=== PATIENT | female | born 1960 | race Caucasian/White ===

== ENCOUNTER 2018-05-15 06:21 | Inpatient (IN) | payer OTHER ==
[2018-05-15] MEDS ORDERED: Gabapentin 300 MG Cap PO ONE (06:30)
[2018-05-15] MEDS ORDERED: Scopolamine 1.5 MG Transdermal Patch TOP SCH (06:30)
[2018-05-15] MEDS ORDERED: Acetaminophen 500 MG Tab PO ONE (06:30)
[2018-05-15] MEDS ORDERED: Celecoxib 200 MG Cap PO ONE (06:30)
[2018-05-15] MEDS ORDERED: Rocuronium 50 MG/5 ML Vial ONE ×2 (07:02→08:45)
[2018-05-15] MEDS ORDERED: fentaNYL 250 MCG/5 ML SDV ONE ×2 (07:02→08:49)
[2018-05-15] MEDS ORDERED: Succinylcholine 200 MG/10 ML MDV ONE (07:02)
[2018-05-15] MEDS ORDERED: Glycopyrrolate 0.2 MG/ML 5 ML MDV ONE (07:02)
[2018-05-15] MEDS ORDERED: Dexamethasone 4 MG/ML SDV ONE (07:02)
[2018-05-15] MEDS ORDERED: Propofol 200 MG/20 ML SDV ONE (07:02)
[2018-05-15] MEDS ORDERED: Neostigmine Methylsulfate 1 MG/ML 5 ML Syringe ONE (07:02)
[2018-05-15] MEDS ORDERED: Ondansetron 4 MG/2 ML SDV ONE (07:02)
[2018-05-15] MEDS ORDERED: Lactated Ringers 1,000 ML ONE (07:03)
[2018-05-15] MEDS: Dextrose 5%-Lactated Ringers 1,000 ML IV SCH (07:12)
[2018-05-15] MEDS ORDERED: Lidocaine 1% 2 ML ONE (07:58)
[2018-05-15] MEDS ORDERED: Ropivacaine 51 ML, Dexamethasone 8 MG, EPINEPHrine 0.4 MG, Sodium Chloride 0.9% 26.6 ML NERVRT SCH ×4 (08:15)
[2018-05-15] MEDS ORDERED: Ketamine 50 MG in Sodium Chloride 0.9% 49.5 ML IV SCH (08:15)
[2018-05-15] MEDS ORDERED: Lidocaine 2% 100 MG/5 ML Syringe IVPUSH SCH (08:15)
[2018-05-15] MEDS ORDERED: Ketamine 500 MG/5 ML MDV IV SCH (08:15)
[2018-05-15] MEDS ORDERED: Lidocaine 0.4%/D5W 2 GM/500 ML BAG IV SCH (08:15)
[2018-05-15] MEDS ORDERED: cefOXitin 2 GM Vial ONE (08:33)
[2018-05-15] MEDS: cefOXitin 2 GM in Sodium Chloride 0.9% 50 ML IV ONE ×2 (08:40→14:04)
[2018-05-15] MEDS ORDERED: Insulin Lispro 100 Unit/ML 3 ML KwikPen SUBCUT ONE (10:45)
[2018-05-15] MEDS ORDERED: Glucagon,Human Recombinant 1 MG Vial IM PRN (11:30)
[2018-05-15] MEDS ORDERED: Labetalol 20 MG/4 ML Syringe IVPUSH PRN (11:30)
[2018-05-15] MEDS ORDERED: 50% Dextrose in Water 50 ML Syringe IVPUSH PRN (11:30)
[2018-05-15] MEDS ORDERED: diphenhydrAMINE 50 MG/ML SDV IVPUSH PRN (11:30)
[2018-05-15] MEDS ORDERED: Metoclopramide 10 MG/2 ML SDV IVPUSH PRN (11:30)
[2018-05-15] MEDS ORDERED: Ondansetron 4 MG/2 ML SDV IVPUSH PRN (11:30)
[2018-05-15] MEDS ORDERED: hydrOXYzine HCl 100 MG/2 ML SDV IM PRN (11:30)
[2018-05-15] MEDS ORDERED: HYDROmorphone 0.5 MG/0.5 ML Syringe IVPUSH PRN (11:36)
[2018-05-15] MEDS: Lactated Ringers 1,000 ML IV SCH ×2 (12:00→23:59)
[2018-05-15] MEDS: Pantoprazole 40 MG Vial IVPUSH SCH (14:04)
[2018-05-15] MEDS: Acetaminophen Soln 650 MG/20.3 ML UD Cup PO SCH ×2 (14:05→20:34)
[2018-05-15] MEDS: Gabapentin 250 MG/5 ML Solution ML 470 ML Bottle PO SCH ×2 (15:04→20:35)
[2018-05-15] MEDS: MVI, Adult with Vitamin K 10 ML, Thiamine 100 MG, Chromium/Copper/Mang/Selen/Zn 1 ML in... IV SCH ×4 (15:04)
[2018-05-15] MEDS: Heparin Sodium 5,000 Units/ML Vial SUBCUT SCH (15:04)
[2018-05-15] MEDS: cefOXitin 2 GM in Sodium Chloride 0.9% 50 ML IV SCH ×2 (15:04→20:34)
[2018-05-15] MEDS: Insulin Lispro 100 Unit/ML 3 ML KwikPen SUBCUT PRN ×2 (16:35→21:24)
[2018-05-15] MEDS: metFORMIN 500 MG Tab PO SCH (16:38)
[2018-05-15] MEDS ORDERED: Insulin Glargine,Human Rec. Analog 100 Units/ML 3 ML Pen SUBCUT ONE (21:00)
[2018-05-16] MEDS: Dextrose 5%-Lactated Ringers 1,000 ML IV SCH (01:07)
[2018-05-16] MEDS: cefOXitin 2 GM in Sodium Chloride 0.9% 50 ML IV SCH ×2 (02:57→09:22)
[2018-05-16] MEDS: Acetaminophen Soln 650 MG/20.3 ML UD Cup PO SCH ×4 (02:57→19:29)
[2018-05-16] MEDS: Heparin Sodium 5,000 Units/ML Vial SUBCUT SCH ×2 (03:07→16:21)
[2018-05-16] MEDS ORDERED: Iohexol 647 MG/ML 50 ML SDV PO STA (04:00)
--- NOTE | 2018-05-16 05:02 | CRLCR ---
Indication: Status post Stanley-en-Y evaluation Technique: KUB 2 view Comparison: None Findings/Impression: : First image performed at 3:56 a.m. demonstrates oral contrast material in the distal esophagus, the proximal stomach pouch, and small bowel loops in the left abdomen. A ARLEN drain projects in the left upper quadrant. The 2nd image performed at 4:10 a.m. demonstrates a faint, ill-defined collection of contrast medial to the ARLEN drain. This contrast may be within the stomach pouch although extravasation cannot be entirely excluded. Consider CT abdomen pelvis for further evaluation. These findings were discussed with Dr. Garcia at 5:00 a.m. on May 16, 2018. Dictated by Farrah Pride MD @ May 16 2018 4:49AM (Electronically Signed)
[2018-05-16] MEDS: Insulin Lispro 100 Unit/ML 3 ML KwikPen SUBCUT PRN (05:49)
[2018-05-16] MEDS ORDERED: Insulin Glargine,Human Rec. Analog 100 Units/ML 3 ML Pen SUBCUT STA (06:57)
[2018-05-16] MEDS: Celecoxib 200 MG Cap PO SCH (07:28)
[2018-05-16] MEDS: metFORMIN 500 MG Tab PO SCH ×2 (07:28→16:21)
[2018-05-16] MEDS ORDERED: Ondansetron 4 MG Tab.DIS PO PRN (08:09)
--- NOTE | 2018-05-16 08:39 | PCM.SURGPN ---
- General Info Date of Service: 05/16/18 Date of Surgery/Procedure: 05/15/18 POD#: 1 Post-Op Diagnosis: Laparosopic gastric bypass Stanley-en-Y. Laparoscopic small bowel resection. Liver biopsy percutaneous. Excision of lesion of soft tissue mass/lipoma/cyst Functional Status: Reports: Pain Controlled (scheduled Tylenol 650 mg PO every 6 hours, scheduled gabapentin 300 mg PO TID, and as needed Dilaudid 0.5 mg IV push every 2 hours), Tolerating Diet (Continue Step II diet with no solids today.), Urinating - Review of Systems Systems Review Comment:: Sharon Nugent is a 58-year-old female who is post op day from a laparoscopic gastric bypass Stanley-en-Y, laparoscopic small bowel resection, liver biopsy percutaneous, and excision of lesion of soft tissue mass/lipoma/cyst. The patient's pain is well controlled with scheduled Tylenol 650 mg PO every 6 hours , scheduled gabapentin 300 mg PO TID, and as needed Dilaudid 0.5 mg IV push every 2 hours. Patient remains afebrile but has elevated blood pressure at 158/ 80. Blood sugars were elevated at 261 and 226 overnight. Patient does not have any questions or concerns at this time. - Patient Data Vitals - Most Recent: Last Vital Signs Temp 36.8 C 05/16/18 06:00 Pulse 86 05/16/18 06:00 Resp 16 05/16/18 06:00 BP 158/80 H 05/16/18 06:00 Pulse Ox 97 05/16/18 07:26 Weight - Most Recent: 102.603 kg I&O - Last 24 Hours: Intake & Output 05/15/18 05/16/18 05/16/18 22:59 06:59 14:59 Intake Total 1249 2619 Output Total 0 2030 Balance -811 589 Med Orders - Current: Current Medications Acetaminophen (Tylenol) 650 mg PO Q6H [facility] Last Admin: 05/16/18 07:28 Dose: 650 mg Celecoxib (Celebrex) 200 mg PO DAILY@0800 [facility] Last Admin: 05/16/18 07:28 Dose: 200 mg Cyanocobalamin (Vitamin B12) 1,000 mcg IM ONETIME ONE Stop: 05/17/18 09:01 Dextrose/Water (Dextrose 50% In Water) 50 ml IVPUSH ONETIME PRN PRN Reason: ACCUCHECK LESS THAN 70 Diphenhydramine HCl (Benadryl) 50 mg IVPUSH Q4H PRN PRN Reason: ITCHING Escitalopram Oxalate (Lexapro) 10 mg PO DAILY [facility] Gabapentin (Neurontin) 300 mg PO TID [facility] Last Admin: 05/15/18 20:35 Dose: 300 mg Glucagon (Glucagen) 1 mg IM ONETIME PRN PRN Reason: ACCUCHECK LESS THAN 70 Heparin Sodium (Porcine) (Heparin Sodium) 5,000 units SUBCUT Q12H [facility] Last Admin: 05/16/18 03:07 Dose: 5,000 units Hydromorphone HCl (Dilaudid) 0.5 mg IVPUSH Q2H PRN PRN Reason: MODERATE PAIN Hydroxyzine HCl (Vistaril) 100 mg IM Q4H PRN PRN Reason: pain Multivitamins/Minerals 10 ml/Thiamine HCl 100 mg/ Chromium/Copper/Manganese/ Seleni/Zn 1 ml/ Lactated Ringer's 1,012 mls @ 100 mls/hr IV DAILY@1600 [facility] Last Admin: 05/15/18 15:04 Dose: 100 mls/hr Cefoxitin Sodium 2 gm/ Sodium (Chloride) 50 mls @ 100 mls/hr IV Q6H [facility] Stop: 05/16/18 09:29 Last Admin: 05/16/18 02:57 Dose: 100 mls/hr Lactated Ringer's (Ringers, Lactated) 1,000 mls @ 80 mls/hr IV ASDIRECTED [facility] Insulin Glargine (Lantus Solostar) 25 units SUBCUT BID [facility] Insulin Human Lispro (Humalog) 0 unit SUBCUT Q6H PRN; Protocol PRN Reason: CORRECTIONAL DOSING Last Admin: 05/16/18 05:49 Dose: 5 units Labetalol HCl (Normodyne) 5 mg IVPUSH Q5M PRN PRN Reason: SBP over 160 OR DBP over 95 Meclizine HCl (Antivert) 12.5 - 25 mg PO DAILY [facility] Metformin HCl (Glucophage) 1,000 mg PO BIDMEALS [facility] Last Admin: 05/16/18 07:28 Dose: 1,000 mg Metoclopramide HCl (Reglan) 10 mg IVPUSH Q6H PRN PRN Reason: NAUSEA NOT CONTROL BY ZOFRAN Miscellaneous Information (Remove Patch) 1 ea TRDERM ONETIME ONE Stop: 05/17/18 10:01 Scopolamine Patch (Check) 1 each TOP DAILY [facility] Stop: 05/17/18 11:31 Ondansetron HCl (Zofran) 4 mg IVPUSH Q4H PRN PRN Reason: Nausea/Vomiting Ondansetron HCl (Zofran Odt) 4 mg PO Q4H PRN PRN Reason: Nausea/Vomiting Pantoprazole Sodium (Protonix Iv) 40 mg IVPUSH Q24H [facility] Last Admin: 05/15/18 14:04 Dose: 40 mg Scopolamine (Transderm-Scop) 1.5 mg TOP Q72H [facility] Stop: 05/17/18 06:31 Last Admin: 05/15/18 07:10 Dose: 1.5 mg Discontinued Medications Acetaminophen (Tylenol Extra Strength) 1,000 mg PO ONETIME ONE Stop: 05/15/18 06:31 Last Admin: 05/15/18 07:09 Dose: 1,000 mg Cefoxitin Sodium (Mefoxin) Confirm Administered Dose 2 gm .ROUTE .STK-MED ONE Stop: 05/15/18 08:34 Last Admin: 05/15/18 08:53 Dose: 2 gm Celecoxib (Celebrex) 200 mg PO ONETIME ONE Stop: 05/15/18 06:31 Last Admin: 05/15/18 07:10 Dose: 200 mg Ropivacaine 51 ml/Dexamethasone 8 mg/Epinephrine HCl 0.4 mg/ Sodium Chloride 26.6 ml 0 ml NERVRT ASDIRECTED [facility] Last Admin: 05/15/18 08:41 Dose: 80 syringe Dexamethasone (Dexamethasone) Confirm Administered Dose 4 mg .ROUTE .STK-MED ONE Stop: 05/15/18 07:03 Fentanyl (Sublimaze) Confirm Administered Dose 250 mcg .ROUTE .STK-MED ONE Stop: 05/15/18 07:03 Fentanyl (Sublimaze) Confirm Administered Dose 250 mcg .ROUTE .STK-MED ONE Stop: 05/15/18 08:50 Gabapentin (Neurontin) 300 mg PO ONETIME ONE Stop: 05/15/18 06:31 Last Admin: 05/15/18 07:09 Dose: 300 mg Glycopyrrolate (Robinul) Confirm Administered Dose 1 mg .ROUTE .STK-MED ONE Stop: 05/15/18 07:03 Dextrose/Lactated Ringer's (Dextrose 5%-Lactated Ringers) 1,000 mls @ 100 mls/ hr IV ASDIRECTED [facility] Last Admin: 05/16/18 01:07 Dose: 100 mls/hr Cefoxitin Sodium 2 gm/ Sodium (Chloride) 50 mls @ 100 mls/hr IV ONETIME ONE Stop: 05/15/18 07:29 Last Admin: 05/15/18 14:04 Dose: Not Given Lidocaine HCl/Dextrose (Lidocaine 2 Gm/D5w 500 Ml) 2 gm in 500 mls @ 15 mls/hr IV .Q24H [facility] Stop: 05/16/18 17:34 Last Admin: 05/15/18 14:02 Dose: 1 mg/min, 15 mls/hr Ketamine HCl 50 mg/ Sodium (Chloride) 50 mls @ 15 mls/hr IV ASDIRECTED [facility] Insulin Human Regular 100 unit (/ Sodium Chloride) 100 mls @ 0 mls/hr IV TITRATE [facility]; Protocol Lactated Ringer's (Ringers, Lactated) Confirm Administered Dose 1,000 mls @ as directed .ROUTE .[facility]-MED ONE Stop: 05/15/18 07:04 Lidocaine HCl (Xylocaine-Mpf 1%) Confirm Administered Dose 2 mls @ as directed .ROUTE .[facility]-MED ONE Stop: 05/15/18 07:59 Lactated Ringer's (Ringers, Lactated) 1,000 mls @ 100 mls/hr IV ASDIRECTED [facility] Last Admin: 05/15/18 23:59 Dose: 100 mls/hr Insulin Glargine (Lantus Solostar) 25 units SUBCUT ONETIME ONE Stop: 05/15/18 21:01 Last Admin: 05/15/18 21:22 Dose: 25 unit Insulin Glargine (Lantus Solostar) 25 units SUBCUT DAILY [facility] Stop: 05/16/18 06:58 Last Admin: 05/16/18 07:23 Dose: 25 units Insulin Human Lispro (Humalog) 7 unit SUBCUT ONETIME ONE Stop: 05/15/18 10:46 Last Admin: 05/15/18 10:36 Dose: 7 units Iohexol (Omnipaque-300) 50 ml PO ONETIME [facility] Stop: 05/16/18 04:01 Last Admin: 05/16/18 04:01 Dose: 50 ml Ketamine HCl (Ketalar) 25 mg IV ASDIRECTED [facility] Lidocaine HCl (Xylocaine 2%) 100 mg IVPUSH ASDIRECTED [facility] Neostigmine Methylsulfate (Neostigmine) Confirm Administered Dose 5 mg .ROUTE .STK-MED ONE Stop: 05/15/18 07:03 Ondansetron HCl (Zofran) Confirm Administered Dose 4 mg .ROUTE .STK-MED ONE Stop: 05/15/18 07:03 Propofol (Diprivan 20 Ml) Confirm Administered Dose 200 mg .ROUTE .STK-MED ONE Stop: 05/15/18 07:03 Rocuronium Divide (Zemuron) Confirm Administered Dose 50 mg .ROUTE .STK-MED ONE Stop: 05/15/18 07:03 Rocuronium Divide (Zemuron) Confirm Administered Dose 50 mg .ROUTE .STK-MED ONE Stop: 05/15/18 08:46 Succinylcholine Chloride (Quelicin) Confirm Administered Dose 200 mg .ROUTE .STK -MED ONE Stop: 05/15/18 07:03 - Exam General: Alert, Oriented Neck: Supple Lungs: Clear to Auscultation, Normal Respiratory Effort Cardiovascular: Regular Rate, Regular Rhythm Extremities: No Pedal Edema Neurological: No New Focal Deficit Psy/Mental Status: Normal Affect, Normal Mood Physical Findings Comment:: Oral intake 480 mL Urine output 4025 mL ARLEN drain 65 mL - Problem List Review Problem List Initiated/Reviewed/Updated: Yes - My Orders Last 24 Hours: Active Orders 24 hr Category Date Time Status Patient Status [ADT] Routine ADT 05/15/18 10:00 Active Ambulate [RC] ASDIRECTED Care 05/15/18 11:30 Active Cardiac Monitoring Discontinue [RC] Click to Edit Care 05/16/18 09:00 Active Cardiac Monitoring [RC] .As Directed Care 05/15/18 11:30 Active Communication Order [RC] ASDIRECTED Care 05/16/18 08:11 Active Communication Order [RC] ASDIRECTED Care 05/16/18 08:12 Active Communication Order [RC] ROUTINE Care 05/15/18 11:30 Active Dorsiflex/Plantar flex x 10 [RC] QSHIFT Care 05/15/18 11:30 Active Drain Management [RC] ASDIRECTED Care 05/15/18 11:30 Active Head of Bed Elevation [RC] CONTINUOUS Care 05/15/18 11:30 Active Insert Urinary Catheter [OM.PC] Per Unit Routine Care 05/15/18 11:30 Ordered Insert Urinary Catheter [OM.PC] Per Unit Routine Care 05/15/18 11:30 Ordered Intake and Output [RC] ASDIRECTED Care 05/15/18 11:30 Active May Shower [RC] ASDIRECTED Care 05/16/18 08:09 Active Notify Provider Intake and Out [RC] ASDIRECTED Care 05/15/18 11:30 Active Notify Provider [RC] PRN Care 05/15/18 11:30 Active Oxygen Therapy [RC] ASDIRECTED Care 05/15/18 11:30 Active Pneumonia Education [RC] UPON Care 05/15/18 11:30 Active Pulse Oximetry [RC] ASDIRECTED Care 05/15/18 11:30 Active RT BiPAP/CPAP [RC] ASDIRECTED Care 05/15/18 11:30 Active RT Incentive Spirometry [RC] Q1HWA Care 05/15/18 11:30 Active Turn, Cough, Deep Breathe [RC] Q1HWA Care 05/15/18 11:30 Active Up to Chair [RC] TIDMEALS Care 05/15/18 11:30 Active Vital Signs [RC] Q1H Care 05/15/18 11:30 Active Consult to Bariatric Services [CONS] Routine Cons 05/15/18 11:30 Active Consult to Atomic Physics Professor [CONS] Routine Cons 05/15/18 11:30 Active Respiratory Care Assess and Treatment [CONS] Routine Cons 05/15/18 11:30 Active Bariatric Diet [DIET] Diet 05/16/18 Breakfast Active GLUCOSE POC LAB TO COLLECT [POC] Q6H Lab 05/16/18 10:00 Ordered GLUCOSE POC LAB TO COLLECT [POC] Q6H Lab 05/16/18 16:00 Ordered GLUCOSE POC LAB TO COLLECT [POC] Q6H Lab 05/16/18 22:00 Ordered GLUCOSE POC LAB TO COLLECT [POC] Q6H Lab 05/17/18 04:00 Ordered GLUCOSE POC LAB TO COLLECT [POC] Q6H Lab 05/17/18 10:00 Ordered GLUCOSE POC LAB TO COLLECT [POC] Q6H Lab 05/17/18 16:00 Ordered GLUCOSE POC LAB TO COLLECT [POC] Q6H Lab 05/17/18 22:00 Ordered GLUCOSE POC LAB TO COLLECT [POC] Q6H Lab 05/18/18 04:00 Ordered GLUCOSE POC LAB TO COLLECT [POC] Q6H Lab 05/18/18 10:00 Ordered Acetaminophen [Tylenol] Med 05/15/18 14:00 Active 650 mg PO Q6H Celecoxib [CeleBREX] Med 05/16/18 08:00 Active 200 mg PO DAILY@0800 Cyanocobalamin (Vitamin B12) [Vitamin B12] Med 05/17/18 09:00 Once 1,000 mcg IM ONETIME ONE Dextrose 50% in Water Med 05/15/18 11:30 Active 50 ml IVPUSH ONETIME PRN Escitalopram [Lexapro] Med 05/16/18 09:00 Active 10 mg PO DAILY Gabapentin [Neurontin] Med 05/15/18 14:00 Active 300 mg PO TID Glucagon,Human Recombinant [GlucaGen] Med 05/15/18 11:30 Active 1 mg IM ONETIME PRN HYDROmorphone [Dilaudid] Med 05/15/18 11:36 Active 0.5 mg IVPUSH Q2H PRN Heparin Sodium Med 05/15/18 16:00 Active 5,000 units SUBCUT Q12H Insulin Glarg,Human.Rec.Analog [LantUS Solostar] Med 05/16/18 21:00 Active 25 units SUBCUT BID Insulin Lispro [HumaLOG] Med 05/15/18 11:30 Active 0 unit SUBCUT Q6H PRN Labetalol [Normodyne] Med 05/15/18 11:30 Active 5 mg IVPUSH Q5M PRN Lactated Ringers [Ringers, Lactated] 1,000 ml Med 05/16/18 08:07 Active IV ASDIRECTED MVI, Adult with Vitamin K [Infuvite Adult] 10 ml Med 05/15/18 16:00 Active Thiamine [Vitamin B-1] 100 mg Chromium/Copper/Rohit/Selen/Zn [Multitrace-5 Concentrate ] 1 ml Lactated Ringers [Ringers, Lactated] 1,000 ml IV DAILY@1600 Meclizine [Antivert] Med 05/16/18 09:00 Active 12.5 - 25 mg PO DAILY Metoclopramide [Reglan] Med 05/15/18 11:30 Active 10 mg IVPUSH Q6H PRN Non-Formulary Medication [NF Drug] Med 05/15/18 11:30 Active 1 each TOP DAILY Ondansetron [Zofran ODT] Med 05/16/18 08:09 Active 4 mg PO Q4H PRN Ondansetron [Zofran] Med 05/15/18 11:30 Active 4 mg IVPUSH Q4H PRN Pantoprazole [ProTONIX IV] Med 05/15/18 14:00 Active 40 mg IVPUSH Q24H Remove Patch Med 05/17/18 10:00 Once 1 ea TRDERM ONETIME ONE cefOXitin [Mefoxin] 2 gm Med 05/15/18 15:00 Active Sodium Chloride 0.9% [Normal Saline] 50 ml IV Q6H diphenhydrAMINE [Benadryl] Med 05/15/18 11:30 Active 50 mg IVPUSH Q4H PRN hydrOXYzine HCl [Vistaril] Med 05/15/18 11:30 Active 100 mg IM Q4H PRN metFORMIN [Glucophage] Med 05/15/18 17:00 Active 1,000 mg PO BIDMEALS Abdominal Binder [OM.PC] Routine Oth 05/15/18 11:30 Ordered Oral Care [OM.PC] BID Oth 05/15/18 11:30 Ordered Oral Care [OM.PC] BID Oth 05/16/18 11:30 Ordered PT Screening [OM.PC] Routine Oth 05/15/18 11:30 Active Sequential Compression Device [OM.PC] Routine Oth 05/15/18 11:30 Ordered Specialty Bed [OM.PC] Routine Oth 05/15/18 11:30 Ordered Resuscitation Status Routine Resus Stat 05/15/18 11:30 Ordered Medication Orders Acetaminophen (Tylenol) 650 mg PO Q6H [facility] Last Admin: 05/16/18 07:28 Dose: 650 mg Admin: 05/16/18 02:57 Dose: 650 mg Admin: 05/15/18 20:34 Dose: 650 mg Admin: 05/15/18 14:05 Dose: 650 mg Celecoxib (Celebrex) 200 mg PO DAILY@0800 [facility] Last Admin: 05/16/18 07:28 Dose: 200 mg Cyanocobalamin (Vitamin B12) 1,000 mcg IM ONETIME ONE Stop: 05/17/18 09:01 Dextrose/Water (Dextrose 50% In Water) 50 ml IVPUSH ONETIME PRN PRN Reason: ACCUCHECK LESS THAN 70 Diphenhydramine HCl (Benadryl) 50 mg IVPUSH Q4H PRN PRN Reason: ITCHING Escitalopram Oxalate (Lexapro) 10 mg PO DAILY [facility] Gabapentin (Neurontin) 300 mg PO TID [facility] Last Admin: 05/15/18 20:35 Dose: 300 mg Admin: 05/15/18 15:04 Dose: 300 mg Glucagon (Glucagen) 1 mg IM ONETIME PRN PRN Reason: ACCUCHECK LESS THAN 70 Heparin Sodium (Porcine) (Heparin Sodium) 5,000 units SUBCUT Q12H [facility] Last Admin: 05/16/18 03:07 Dose: 5,000 units Admin: 05/15/18 15:04 Dose: 5,000 units Hydromorphone HCl (Dilaudid) 0.5 mg IVPUSH Q2H PRN PRN Reason: MODERATE PAIN Hydroxyzine HCl (Vistaril) 100 mg IM Q4H PRN PRN Reason: pain Multivitamins/Minerals 10 ml/Thiamine HCl 100 mg/ Chromium/Copper/Manganese/ Seleni/Zn 1 ml/ Lactated Ringer's 1,012 mls @ 100 mls/hr IV DAILY@1600 [facility] Last Admin: 05/15/18 15:04 Dose: 100 mls/hr Cefoxitin Sodium 2 gm/ Sodium (Chloride) 50 mls @ 100 mls/hr IV Q6H [facility] Stop: 05/16/18 09:29 Last Admin: 05/16/18 02:57 Dose: 100 mls/hr Admin: 05/15/18 20:34 Dose: 100 mls/hr Admin: 05/15/18 15:04 Dose: 100 mls/hr Lactated Ringer's (Ringers, Lactated) 1,000 mls @ 80 mls/hr IV ASDIRECTED [facility] Insulin Glargine (Lantus Solostar) 25 units SUBCUT BID [facility] Insulin Human Lispro (Humalog) 0 unit SUBCUT Q6H PRN; Protocol PRN Reason: CORRECTIONAL DOSING Last Admin: 05/16/18 05:49 Dose: 5 units Admin: 05/15/18 21:24 Dose: 7 units Admin: 05/15/18 16:35 Dose: 7 units Labetalol HCl (Normodyne) 5 mg IVPUSH Q5M PRN PRN Reason: SBP over 160 OR DBP over 95 Meclizine HCl (Antivert) 12.5 - 25 mg PO DAILY [facility] Metformin HCl (Glucophage) 1,000 mg PO BIDMEALS [facility] Last Admin: 05/16/18 07:28 Dose: 1,000 mg Admin: 05/15/18 16:38 Dose: 1,000 mg Metoclopramide HCl (Reglan) 10 mg IVPUSH Q6H PRN PRN Reason: NAUSEA NOT CONTROL BY ZOFRAN Miscellaneous Information (Remove Patch) 1 ea TRDERM ONETIME ONE Stop: 05/17/18 10:01 Scopolamine Patch (Check) 1 each TOP DAILY [facility] Stop: 05/17/18 11:31 Ondansetron HCl (Zofran) 4 mg IVPUSH Q4H PRN PRN Reason: Nausea/Vomiting Ondansetron HCl (Zofran Odt) 4 mg PO Q4H PRN PRN Reason: Nausea/Vomiting Pantoprazole Sodium (Protonix Iv) 40 mg IVPUSH Q24H [facility] Last Admin: 05/15/18 14:04 Dose: 40 mg Scopolamine (Transderm-Scop) 1.5 mg TOP Q72H [facility] Stop: 05/17/18 06:31 Last Admin: 05/15/18 07:10 Dose: 1.5 mg - Assessment Assessment (Free Text/Narrative):: Pre-Op Diagnosis: BMI 37 Post-Op Diagnosis: BMI 37 Procedure: 1) Laparoscopic gastric bypass Stanley-en-Y 2) Laparoscopic small bowel resection 3) Liver biopsy percutaneous 4) Excision of lesion of soft tissue mass/lipoma/cyst Date of Surgery: 05/15/18 Surgeon: Ford Garcia MD - Plan Plan (Free Text/Narrative):: 1. Check ARLEN drain for fluid color and volume every hour. 2. 3 medicine cups of water every hour. 3. Start Lantus 25 units subcutaneous BID at 0700 and 1900. 4. Start Meclizine 12.5-25 mg PO daily. 5. Zofran 4 mg PO every 4 hours PRN for nausea and vomiting. 6. Discontinue Dextrose 5%-LR 1,000 mL IV as directed. 7. Start LR 1,000 mL IV as directed. 8. May shower.
[2018-05-16] MEDS ORDERED: HYDROCORTISONE EARRT SCH (09:00)
[2018-05-16] MEDS ORDERED: ACETIC ACID EARRT SCH (09:00)
[2018-05-16] MEDS ORDERED: [UNRECOGNIZED DRUG - OTHER] EARRT SCH (09:00)
[2018-05-16] MEDS ORDERED: Escitalopram 10 MG Tab PO SCH (09:00)
[2018-05-16] MEDS: SCOPOLAMINE PATCH CHECK TOP SCH (09:22)
[2018-05-16] MEDS: Gabapentin 250 MG/5 ML Solution ML 470 ML Bottle PO SCH ×3 (09:23→21:47)
[2018-05-16] MEDS: Meclizine 25 MG Tab PO SCH (09:26)
[2018-05-16] MEDS: Lactated Ringers 1,000 ML IV SCH (11:07)
[2018-05-16] MEDS: Pantoprazole 40 MG Vial IVPUSH SCH (13:17)
[2018-05-16] MEDS: MVI, Adult with Vitamin K 10 ML, Thiamine 100 MG, Chromium/Copper/Mang/Selen/Zn 1 ML in... IV SCH ×4 (16:21)
[2018-05-16] MEDS ORDERED: Insulin Glargine,Human Rec. Analog 100 Units/ML 3 ML Pen SUBCUT SCH (21:00)
[2018-05-17] MEDS: Acetaminophen Soln 650 MG/20.3 ML UD Cup PO SCH ×4 (01:13→20:37)
[2018-05-17] MEDS: Lactated Ringers 1,000 ML IV SCH (01:21)
[2018-05-17] MEDS: Heparin Sodium 5,000 Units/ML Vial SUBCUT SCH ×2 (03:27→15:10)
[2018-05-17] MEDS: Clindamycin Phosphate 900 MG in Sodium Chloride 0.9% 100 ML IV SCH ×3 (08:05→23:00)
[2018-05-17] MEDS: Celecoxib 200 MG Cap PO SCH (08:05)
[2018-05-17] MEDS: Meclizine 25 MG Tab PO SCH (08:06)
[2018-05-17] MEDS: Gabapentin 250 MG/5 ML Solution ML 470 ML Bottle PO SCH ×3 (08:14→20:39)
[2018-05-17] MEDS: SCOPOLAMINE PATCH CHECK TOP SCH (08:15)
[2018-05-17] MEDS ORDERED: Cyanocobalamin (Vitamin B12) 1,000 MCG/ML SDV IM ONE (09:00)
--- NOTE | 2018-05-17 09:15 | PCM.SURGPN ---
- General Info Date of Service: 05/17/18 Date of Surgery/Procedure: 05/15/18 POD#: 2 Post-Op Diagnosis: Laparosopic gastric bypass Stanley-en-Y. Laparoscopic small bowel resection. Liver biopsy percutaneous. Excision of lesion of soft tissue mass/lipoma/cyst Functional Status: Reports: Pain Controlled (with scheduled Tylenol 650 mg PO every 6 hours, scheduled gabapentin 300 mg PO TID, and as needed Dilaudid 0.5 mg IV push every 2 hours), Tolerating Diet (Continue Step II diet today.), Ambulating (with assistance and suplemental oxygen.), Urinating (300 mL), Incentive Spirometry (use is good (performing this 10x/ hour while awake).) - Review of Systems Systems Review Comment:: Sharon Nugent is a 58-year-old female who is post op day 2 from a laparoscopic gastric bypass Stanley-en-Y, laparoscopic small bowel resection, liver biopsy percutaneous, and excision of lesion of soft tissue mass/lipoma/ cyst. The patient's pain is well controlled with scheduled Tylenol 650 mg PO every 6 hours, scheduled gabapentin 300 mg PO TID, and as needed Dilaudid 0.5 mg IV push every 2 hours. Patient remains afebrile but has elevated blood pressure at 154/69. Blood sugars decreased to a normal range at 91 and 86 overnight. Patient has had 1 bowel movement. Patient does not have any questions or concerns at this time. - Patient Data Vitals - Most Recent: Last Vital Signs Temp 37.7 C 05/17/18 07:00 Pulse 82 05/17/18 07:00 Resp 16 05/17/18 07:00 BP 165/81 H 05/17/18 07:00 Pulse Ox 95 05/17/18 07:00 Weight - Most Recent: 102.603 kg I&O - Last 24 Hours: Intake & Output 05/16/18 05/17/18 05/17/18 22:59 06:59 14:59 Intake Total 1640 1060 Output Total 850 1630 300 Balance 790 -570 -300 Med Orders - Current: Current Medications Acetaminophen (Tylenol) 650 mg PO Q6H [facility] Last Admin: 05/17/18 08:05 Dose: 650 mg Celecoxib (Celebrex) 200 mg PO DAILY@0800 [facility] Last Admin: 05/17/18 08:05 Dose: 200 mg Dextrose/Water (Dextrose 50% In Water) 50 ml IVPUSH ONETIME PRN PRN Reason: ACCUCHECK LESS THAN 70 Diphenhydramine HCl (Benadryl) 50 mg IVPUSH Q4H PRN PRN Reason: ITCHING Escitalopram Oxalate (Lexapro) 10 mg PO BEDTIME MICHELA Gabapentin (Neurontin) 300 mg PO TID [facility] Last Admin: 05/17/18 08:14 Dose: 300 mg Glucagon (Glucagen) 1 mg IM ONETIME PRN PRN Reason: ACCUCHECK LESS THAN 70 Heparin Sodium (Porcine) (Heparin Sodium) 5,000 units SUBCUT Q12H [facility] Last Admin: 05/17/18 03:27 Dose: 5,000 units Hydromorphone HCl (Dilaudid) 0.5 mg IVPUSH Q2H PRN PRN Reason: MODERATE PAIN Hydroxyzine HCl (Vistaril) 100 mg IM Q4H PRN PRN Reason: pain Multivitamins/Minerals 10 ml/Thiamine HCl 100 mg/ Chromium/Copper/Manganese/ Seleni/Zn 1 ml/ Lactated Ringer's 1,012 mls @ 100 mls/hr IV DAILY@1600 [facility] Last Admin: 05/16/18 16:21 Dose: 100 mls/hr Lactated Ringer's (Ringers, Lactated) 1,000 mls @ 80 mls/hr IV ASDIRECTED [facility] Last Admin: 05/17/18 01:21 Dose: 80 mls/hr Clindamycin Phosphate 900 mg/ (Sodium Chloride) 106 mls @ 200 mls/hr IV Q8H [facility] Last Admin: 05/17/18 08:05 Dose: 200 mls/hr Insulin Human Lispro (Humalog) 0 unit SUBCUT Q6H PRN; Protocol PRN Reason: CORRECTIONAL DOSING Last Admin: 05/16/18 05:49 Dose: 5 units Labetalol HCl (Normodyne) 5 mg IVPUSH Q5M PRN PRN Reason: SBP over 160 OR DBP over 95 Meclizine HCl (Antivert) 12.5 - 25 mg PO DAILY [facility] Last Admin: 05/17/18 08:06 Dose: 25 mg Metoclopramide HCl (Reglan) 10 mg IVPUSH Q6H PRN PRN Reason: NAUSEA NOT CONTROL BY ZOFRAN Miscellaneous Information (Remove Patch) 1 ea TRDERM ONETIME ONE Stop: 05/17/18 10:01 Scopolamine Patch (Check) 1 each TOP DAILY [facility] Stop: 05/17/18 11:31 Last Admin: 05/17/18 08:15 Dose: Not Given Ondansetron HCl (Zofran) 4 mg IVPUSH Q4H PRN PRN Reason: Nausea/Vomiting Ondansetron HCl (Zofran Odt) 4 mg PO Q4H PRN PRN Reason: Nausea/Vomiting Pantoprazole Sodium (Protonix Iv) 40 mg IVPUSH Q24H [facility] Last Admin: 05/16/18 13:17 Dose: 40 mg Discontinued Medications Acetaminophen (Tylenol Extra Strength) 1,000 mg PO ONETIME ONE Stop: 05/15/18 06:31 Last Admin: 05/15/18 07:09 Dose: 1,000 mg Cefoxitin Sodium (Mefoxin) Confirm Administered Dose 2 gm .ROUTE .STK-MED ONE Stop: 05/15/18 08:34 Last Admin: 05/15/18 08:53 Dose: 2 gm Celecoxib (Celebrex) 200 mg PO ONETIME ONE Stop: 05/15/18 06:31 Last Admin: 05/15/18 07:10 Dose: 200 mg Ropivacaine 51 ml/Dexamethasone 8 mg/Epinephrine HCl 0.4 mg/ Sodium Chloride 26.6 ml 0 ml NERVRT ASDIRECTED [facility] Last Admin: 05/15/18 08:41 Dose: 80 syringe Cyanocobalamin (Vitamin B12) 1,000 mcg IM ONETIME ONE Stop: 05/17/18 09:01 Last Admin: 05/17/18 08:07 Dose: 1,000 mcg Dexamethasone (Dexamethasone) Confirm Administered Dose 4 mg .ROUTE .STK-MED ONE Stop: 05/15/18 07:03 Escitalopram Oxalate (Lexapro) 10 mg PO DAILY [facility] Last Admin: 05/16/18 09:26 Dose: 10 mg Fentanyl (Sublimaze) Confirm Administered Dose 250 mcg .ROUTE .STK-MED ONE Stop: 05/15/18 07:03 Fentanyl (Sublimaze) Confirm Administered Dose 250 mcg .ROUTE .STK-MED ONE Stop: 05/15/18 08:50 Gabapentin (Neurontin) 300 mg PO ONETIME ONE Stop: 05/15/18 06:31 Last Admin: 05/15/18 07:09 Dose: 300 mg Glycopyrrolate (Robinul) Confirm Administered Dose 1 mg .ROUTE .[facility] ONE Stop: 05/15/18 07:03 Dextrose/Lactated Ringer's (Dextrose 5%-Lactated Ringers) 1,000 mls @ 100 mls/ hr IV ASDIRECTED [facility] Last Admin: 05/16/18 01:07 Dose: 100 mls/hr Cefoxitin Sodium 2 gm/ Sodium (Chloride) 50 mls @ 100 mls/hr IV ONETIME ONE Stop: 05/15/18 07:29 Last Admin: 05/15/18 14:04 Dose: Not Given Lidocaine HCl/Dextrose (Lidocaine 2 Gm/D5w 500 Ml) 2 gm in 500 mls @ 15 mls/hr IV .Q24H [facility] Stop: 05/16/18 17:34 Last Admin: 05/15/18 14:02 Dose: 1 mg/min, 15 mls/hr Ketamine HCl 50 mg/ Sodium (Chloride) 50 mls @ 15 mls/hr IV ASDIRECTED [facility] Insulin Human Regular 100 unit (/ Sodium Chloride) 100 mls @ 0 mls/hr IV TITRATE MICHELA; Protocol Lactated Ringer's (Ringers, Lactated) Confirm Administered Dose 1,000 mls @ as directed .ROUTE .[facility] ONE Stop: 05/15/18 07:04 Lidocaine HCl (Xylocaine-Mpf 1%) Confirm Administered Dose 2 mls @ as directed .ROUTE .[facility] ONE Stop: 05/15/18 07:59 Cefoxitin Sodium 2 gm/ Sodium (Chloride) 50 mls @ 100 mls/hr IV Q6H [facility] Stop: 05/16/18 09:29 Last Admin: 05/16/18 09:22 Dose: 100 mls/hr Lactated Ringer's (Ringers, Lactated) 1,000 mls @ 100 mls/hr IV ASDIRECTED [facility] Last Admin: 05/15/18 23:59 Dose: 100 mls/hr Insulin Glargine (Lantus Solostar) 25 units SUBCUT ONETIME ONE Stop: 05/15/18 21:01 Last Admin: 05/15/18 21:22 Dose: 25 unit Insulin Glargine (Lantus Solostar) 25 units SUBCUT DAILY [facility] Stop: 05/16/18 06:58 Last Admin: 05/16/18 07:23 Dose: 25 units Insulin Glargine (Lantus Solostar) 25 units SUBCUT BID [facility] Last Admin: 05/16/18 21:17 Dose: Not Given Insulin Human Lispro (Humalog) 7 unit SUBCUT ONETIME ONE Stop: 05/15/18 10:46 Last Admin: 05/15/18 10:36 Dose: 7 units Iohexol (Omnipaque-300) 50 ml PO ONETIME [facility] Stop: 05/16/18 04:01 Last Admin: 05/16/18 04:01 Dose: 50 ml Ketamine HCl (Ketalar) 25 mg IV ASDIRECTED [facility] Lidocaine HCl (Xylocaine 2%) 100 mg IVPUSH ASDIRECTED [facility] Metformin HCl (Glucophage) 1,000 mg PO BIDMEALS [facility] Last Admin: 05/16/18 16:21 Dose: 1,000 mg Neostigmine Methylsulfate (Neostigmine) Confirm Administered Dose 5 mg .ROUTE .STK-MED ONE Stop: 05/15/18 07:03 Ondansetron HCl (Zofran) Confirm Administered Dose 4 mg .ROUTE .STK-MED ONE Stop: 05/15/18 07:03 Propofol (Diprivan 20 Ml) Confirm Administered Dose 200 mg .ROUTE .STK-MED ONE Stop: 05/15/18 07:03 Rocuronium [place] (Zemuron) Confirm Administered Dose 50 mg .ROUTE .STK-MED ONE Stop: 05/15/18 07:03 Rocuronium [place] (Zemuron) Confirm Administered Dose 50 mg .ROUTE .STK-MED ONE Stop: 05/15/18 08:46 Scopolamine (Transderm-Scop) 1.5 mg TOP Q72H [facility] Stop: 05/17/18 06:31 Last Admin: 05/15/18 07:10 Dose: 1.5 mg Succinylcholine Chloride (Quelicin) Confirm Administered Dose 200 mg .ROUTE .STK -MED ONE Stop: 05/15/18 07:03 - Exam General: Alert, Oriented Neck: Supple Lungs: Clear to Auscultation, Normal Respiratory Effort Cardiovascular: Regular Rate, Regular Rhythm Extremities: No Pedal Edema Neurological: No New Focal Deficit Psy/Mental Status: Normal Affect, Normal Mood Physical Findings Comment:: Oral intake: 1450 mL Urine output:300 mL ARLEN drain: clear, red fluid in drain with 80 mL output - Problem List Review Problem List Initiated/Reviewed/Updated: Yes - My Orders Last 24 Hours: Active Orders 24 hr Category Date Time Status Cardiac Monitoring Discontinue [RC] Click to Edit Care 05/16/18 09:00 Inactive GLUCOSE POC LAB TO COLLECT [POC] Q6H Lab 05/16/18 10:05 Received GLUCOSE POC LAB TO COLLECT [POC] Q6H Lab 05/17/18 10:00 Ordered GLUCOSE POC LAB TO COLLECT [POC] Q6H Lab 05/17/18 16:00 Ordered GLUCOSE POC LAB TO COLLECT [POC] Q6H Lab 05/17/18 22:00 Ordered GLUCOSE POC LAB TO COLLECT [POC] Q6H Lab 05/18/18 04:00 Ordered GLUCOSE POC LAB TO COLLECT [POC] Q6H Lab 05/18/18 10:00 Ordered Clindamycin Phosphate [Cleocin] 900 mg Med 05/17/18 08:30 Active Sodium Chloride 0.9% [Normal Saline] 100 ml IV Q8H Escitalopram [Lexapro] Med 05/17/18 21:00 Active 10 mg PO BEDTIME Meclizine [Antivert] Med 05/16/18 09:00 Active 12.5 - 25 mg PO DAILY Remove Patch Med 05/17/18 10:00 Once 1 ea TRDERM ONETIME ONE Convert IV to Saline Lock [OM.PC] Routine Oth 05/17/18 07:21 Ordered Oral Care [OM.PC] BID Oth 05/16/18 11:30 Ordered Medication Orders Acetaminophen (Tylenol) 650 mg PO Q6H [facility] Last Admin: 05/17/18 08:05 Dose: 650 mg Admin: 05/17/18 01:13 Dose: 650 mg Admin: 05/16/18 19:29 Dose: 650 mg Admin: 05/16/18 13:17 Dose: 650 mg Admin: 05/16/18 07:28 Dose: 650 mg Admin: 05/16/18 02:57 Dose: 650 mg Admin: 05/15/18 20:34 Dose: 650 mg Admin: 05/15/18 14:05 Dose: 650 mg Celecoxib (Celebrex) 200 mg PO DAILY@0800 [facility] Last Admin: 05/17/18 08:05 Dose: 200 mg Admin: 05/16/18 07:28 Dose: 200 mg Dextrose/Water (Dextrose 50% In Water) 50 ml IVPUSH ONETIME PRN PRN Reason: ACCUCHECK LESS THAN 70 Diphenhydramine HCl (Benadryl) 50 mg IVPUSH Q4H PRN PRN Reason: ITCHING Escitalopram Oxalate (Lexapro) 10 mg PO BEDTIME MICHELA Gabapentin (Neurontin) 300 mg PO TID [facility] Last Admin: 05/17/18 08:14 Dose: 300 mg Admin: 05/16/18 21:47 Dose: 300 mg Admin: 05/16/18 13:25 Dose: 300 mg Admin: 05/16/18 09:23 Dose: 300 mg Admin: 05/15/18 20:35 Dose: 300 mg Admin: 05/15/18 15:04 Dose: 300 mg Glucagon (Glucagen) 1 mg IM ONETIME PRN PRN Reason: ACCUCHECK LESS THAN 70 Heparin Sodium (Porcine) (Heparin Sodium) 5,000 units SUBCUT Q12H [facility] Last Admin: 05/17/18 03:27 Dose: 5,000 units Admin: 05/16/18 16:21 Dose: 5,000 units Admin: 05/16/18 03:07 Dose: 5,000 units Admin: 05/15/18 15:04 Dose: 5,000 units Hydromorphone HCl (Dilaudid) 0.5 mg IVPUSH Q2H PRN PRN Reason: MODERATE PAIN Hydroxyzine HCl (Vistaril) 100 mg IM Q4H PRN PRN Reason: pain Multivitamins/Minerals 10 ml/Thiamine HCl 100 mg/ Chromium/Copper/Manganese/ Seleni/Zn 1 ml/ Lactated Ringer's 1,012 mls @ 100 mls/hr IV DAILY@1600 [facility] Last Admin: 05/16/18 16:21 Dose: 100 mls/hr Admin: 05/15/18 15:04 Dose: 100 mls/hr Lactated Ringer's (Ringers, Lactated) 1,000 mls @ 80 mls/hr IV ASDIRECTED [facility] Last Admin: 05/17/18 01:21 Dose: 80 mls/hr Infusion: 05/16/18 23:37 Dose: 80 mls/hr Admin: 05/16/18 11:07 Dose: 80 mls/hr Clindamycin Phosphate 900 mg/ (Sodium Chloride) 106 mls @ 200 mls/hr IV Q8H [facility] Last Admin: 05/17/18 08:05 Dose: 200 mls/hr Insulin Human Lispro (Humalog) 0 unit SUBCUT Q6H PRN; Protocol PRN Reason: CORRECTIONAL DOSING Last Admin: 05/16/18 05:49 Dose: 5 units Admin: 05/15/18 21:24 Dose: 7 units Admin: 05/15/18 16:35 Dose: 7 units Labetalol HCl (Normodyne) 5 mg IVPUSH Q5M PRN PRN Reason: SBP over 160 OR DBP over 95 Meclizine HCl (Antivert) 12.5 - 25 mg PO DAILY [facility] Last Admin: 05/17/18 08:06 Dose: 25 mg Admin: 05/16/18 09:26 Dose: 25 mg Metoclopramide HCl (Reglan) 10 mg IVPUSH Q6H PRN PRN Reason: NAUSEA NOT CONTROL BY ZOFRAN Miscellaneous Information (Remove Patch) 1 ea TRDERM ONETIME ONE Stop: 05/17/18 10:01 Scopolamine Patch (Check) 1 each TOP DAILY [facility] Stop: 05/17/18 11:31 Last Admin: 05/17/18 08:15 Dose: Not Given Admin: 05/16/18 09:22 Dose: Ondansetron HCl (Zofran) 4 mg IVPUSH Q4H PRN PRN Reason: Nausea/Vomiting Ondansetron HCl (Zofran Odt) 4 mg PO Q4H PRN PRN Reason: Nausea/Vomiting Pantoprazole Sodium (Protonix Iv) 40 mg IVPUSH Q24H [facility] Last Admin: 05/16/18 13:17 Dose: 40 mg Admin: 05/15/18 14:04 Dose: 40 mg - Assessment Assessment (Free Text/Narrative):: Pre-Op Diagnosis: BMI 37 Post-Op Diagnosis: BMI 37 Procedure: 1) Laparoscopic gastric bypass Stanley-en-Y 2) Laparoscopic small bowel resection 3) Liver biopsy percutaneous 4) Excision of lesion of soft tissue mass/lipoma/cyst Date of Surgery: 05/15/18 Surgeon: Ford Garcia MD - Plan Plan (Free Text/Narrative):: 1. Convert IV to saline lock. 2. Discontinue Lantus. 3. Discontinue metformin. 4. Start Clindamycin 900 mg IV every 8 hours.
[2018-05-17] MEDS ORDERED: Sodium Chloride 0.9% 10 ML Syringe IV PRN (09:17)
[2018-05-17] MEDS ORDERED: Pantoprazole 40 MG Delayed-Release Granules 1 Packet PO SCH (14:00)
[2018-05-17] MEDS ORDERED: Escitalopram 10 MG Tab PO SCH (21:00)
[2018-05-18] MEDS: Acetaminophen Soln 650 MG/20.3 ML UD Cup PO SCH ×2 (01:50→08:10)
[2018-05-18] MEDS: Heparin Sodium 5,000 Units/ML Vial SUBCUT SCH (03:00)
--- NOTE | 2018-05-18 07:13 | PCM.DCSUM1 ---
Discharge Summary - Hospital Course Free Text/Narrative:: Admission Diagnosis: 1. Status post small bowel resection 2. Gastric bypass status for obesity 3. Coronary artery disease 4. GERD 5. Lumbar spondylolysis 6. Anxiety and depression 7. Chronic obstructive pulmonary disorder Discharge Diagnosis: Laparoscopic gastric bypass Stanley-en-Y, laparoscopic small bowel resection, liver biopsy percutaneous, and excision of lesion of soft tissue mass/lipoma/ cyst. Date of Surgery: 05/15/18. Surgeon: Ford Garcia MD. Brief History: History: Sharon Nugent is a 58-year-old female with a BMI of 37. After preoperative evaluation and discussion of possible risks and possible complications, she wished to proceed with surgical procedure. Hospital Course: Raffi had her surgery on 05/15/18. She had no evident operative complications. On postoperative day 1, she remained afebrile with stable vital signs but had elevated blood pressures. Blood sugars were elevated as well. Pain was well controlled with oral medications. On postoperative day 2, she remained afebrile with stable vital signs but had elevated blood pressures. Blood sugars normalized. Pain was well controlled with oral medications. Patient had a bowel movement. On postoperative day 3, she remained afebrile with stable vital signs including her blood pressure. Blood sugars were elevated but less than 200. Pain still well controlled with oral medications. Bowels are moving effectively. She will be discharged to home today without any complications. - Discharge Data Discharge Date: 05/18/18 Discharge Disposition: Home, Self-Care 01 Condition: Good - Patient Summary/Data Consults: Consultations 05/15/18 11:30 Consult to Bariatric Services [CONS] Routine Comment: Consult to Train Announcer [CONS] Routine Comment: Physician Instructions: Quantity: Respiratory Care Assess and Treatment [CONS] Routine Comment: Physician Instructions: Post-Op Pneumonia Prevention - Patient Instructions Diet, Other: Step II diet for 2 weeks. Drink 3 medicine sized cups of water every hour. Activity: No Lifting Over 10 Pounds (for 2 weeks.) Activity, Other: Walk inside home 6 times per day. Driving: Do Not Drive (for 1 week.) Showering/Bathing: May Shower Wound/Incision Care: Keep Operative Site/Wound Site Clean and Dry Wound/Incision, Other: Wear abdominal binder for 2 weeks and then as tolerated. Notify Provider of: Fever, Increased Pain, Nausea and/or Vomiting Other/Special Instructions: Use incentive spirometer 10x every hour while awake. Check blood sugars twice a day and then if needed. Record results and call clinic on Monday to talk to one of the RNs. - Discharge Plan Home Medications: Home Meds Aspirin [Adult Aspirin] 81 mg PO DAILY 05/14/18 [History] Escitalopram [Lexapro] 10 mg PO DAILY 05/14/18 [History] Hydrocortisone/Acetic Acid [Hydrocortison-Acetic Acid Soln] 3 - 5 drop EARRT BID 05/14/18 [History] Meclizine [Antivert] 12.5 - 25 mg PO DAILY 05/14/18 [History] Acetaminophen [Tylenol] 650 mg PO Q6H cup 05/18/18 [Rx] Celecoxib [CeleBREX] 200 mg PO DAILY@0800 cap 05/18/18 [Rx] Clindamycin HCl [Cleocin HCl] 300 mg PO TID #15 capsule 05/18/18 [Rx] Ondansetron [Zofran ODT] 4 mg PO Q4H PRN #30 tab.dis 05/18/18 [Rx] - Discharge Summary/Plan Comment DC Time >30 min.: Yes - Patient Data Vitals - Most Recent: Last Vital Signs Temp 36.8 C 05/18/18 02:48 Pulse 96 05/18/18 02:48 Resp 16 05/18/18 02:48 BP 120/71 05/18/18 02:48 Pulse Ox 93 L 05/18/18 02:48 Weight - Most Recent: 102.603 kg I&O - Last 24 hours: Intake & Output 05/17/18 05/18/18 05/18/18 22:59 06:59 14:59 Intake Total 680 336 Output Total 340 510 Balance 340 -174 Med Orders - Current: Current Medications Acetaminophen (Tylenol) 650 mg PO Q6H [facility] Last Admin: 05/18/18 01:50 Dose: 650 mg Celecoxib (Celebrex) 200 mg PO DAILY@0800 [facility] Last Admin: 05/17/18 08:05 Dose: 200 mg Dextrose/Water (Dextrose 50% In Water) 50 ml IVPUSH ONETIME PRN PRN Reason: ACCUCHECK LESS THAN 70 Diphenhydramine HCl (Benadryl) 50 mg IVPUSH Q4H PRN PRN Reason: ITCHING Escitalopram Oxalate (Lexapro) 10 mg PO BEDTIME [facility] Last Admin: 05/17/18 20:39 Dose: 10 mg Gabapentin (Neurontin) 300 mg PO TID [facility] Last Admin: 05/17/18 20:39 Dose: 300 mg Glucagon (Glucagen) 1 mg IM ONETIME PRN PRN Reason: ACCUCHECK LESS THAN 70 Heparin Sodium (Porcine) (Heparin Sodium) 5,000 units SUBCUT Q12H [facility] Last Admin: 05/18/18 03:00 Dose: 5,000 units Hydromorphone HCl (Dilaudid) 0.5 mg IVPUSH Q2H PRN PRN Reason: MODERATE PAIN Hydroxyzine HCl (Vistaril) 100 mg IM Q4H PRN PRN Reason: pain Clindamycin Phosphate 900 mg/ (Sodium Chloride) 106 mls @ 200 mls/hr IV Q8H [facility] Last Admin: 05/17/18 23:00 Dose: 200 mls/hr Insulin Human Lispro (Humalog) 0 unit SUBCUT Q6H PRN; Protocol PRN Reason: CORRECTIONAL DOSING Last Admin: 05/16/18 05:49 Dose: 5 units Labetalol HCl (Normodyne) 5 mg IVPUSH Q5M PRN PRN Reason: SBP over 160 OR DBP over 95 Meclizine HCl (Antivert) 12.5 - 25 mg PO DAILY [facility] Last Admin: 05/17/18 08:06 Dose: 25 mg Metoclopramide HCl (Reglan) 10 mg IVPUSH Q6H PRN PRN Reason: NAUSEA NOT CONTROL BY ZOFRAN Ondansetron HCl (Zofran) 4 mg IVPUSH Q4H PRN PRN Reason: Nausea/Vomiting Ondansetron HCl (Zofran Odt) 4 mg PO Q4H PRN PRN Reason: Nausea/Vomiting Pantoprazole Sodium (Protonix Granules) 40 mg PO Q24H [facility] Last Admin: 05/17/18 14:34 Dose: 40 mg Sodium Chloride (Saline Flush) 10 ml IV ASDIRECTED PRN PRN Reason: SALINE LOCK IV Discontinued Medications Acetaminophen (Tylenol Extra Strength) 1,000 mg PO ONETIME ONE Stop: 05/15/18 06:31 Last Admin: 05/15/18 07:09 Dose: 1,000 mg Cefoxitin Sodium (Mefoxin) Confirm Administered Dose 2 gm .ROUTE .STK-MED ONE Stop: 05/15/18 08:34 Last Admin: 05/15/18 08:53 Dose: 2 gm Celecoxib (Celebrex) 200 mg PO ONETIME ONE Stop: 05/15/18 06:31 Last Admin: 05/15/18 07:10 Dose: 200 mg Ropivacaine 51 ml/Dexamethasone 8 mg/Epinephrine HCl 0.4 mg/ Sodium Chloride 26.6 ml 0 ml NERVRT ASDIRECTED [facility] Last Admin: 05/15/18 08:41 Dose: 80 syringe Cyanocobalamin (Vitamin B12) 1,000 mcg IM ONETIME ONE Stop: 05/17/18 09:01 Last Admin: 05/17/18 08:07 Dose: 1,000 mcg Dexamethasone (Dexamethasone) Confirm Administered Dose 4 mg .ROUTE .STK-MED ONE Stop: 05/15/18 07:03 Escitalopram Oxalate (Lexapro) 10 mg PO DAILY [facility] Last Admin: 05/16/18 09:26 Dose: 10 mg Fentanyl (Sublimaze) Confirm Administered Dose 250 mcg .ROUTE .STK-MED ONE Stop: 05/15/18 07:03 Fentanyl (Sublimaze) Confirm Administered Dose 250 mcg .ROUTE .[facility]-MED ONE Stop: 05/15/18 08:50 Gabapentin (Neurontin) 300 mg PO ONETIME ONE Stop: 05/15/18 06:31 Last Admin: 05/15/18 07:09 Dose: 300 mg Glycopyrrolate (Robinul) Confirm Administered Dose 1 mg .ROUTE .STK-MED ONE Stop: 05/15/18 07:03 Dextrose/Lactated Ringer's (Dextrose 5%-Lactated Ringers) 1,000 mls @ 100 mls/ [facility] Last Admin: 05/16/18 01:07 Dose: 100 mls/hr Cefoxitin Sodium 2 gm/ Sodium (Chloride) 50 mls @ 100 mls/hr IV ONETIME ONE Stop: 05/15/18 07:29 Last Admin: 05/15/18 14:04 Dose: Not Given Lidocaine HCl/Dextrose (Lidocaine 2 Gm/D5w 500 Ml) 2 gm in 500 mls @ 15 mls/hr IV .Q24H [facility] Stop: 05/16/18 17:34 Last Admin: 05/15/18 14:02 Dose: 1 mg/min, 15 mls/hr Ketamine HCl 50 mg/ Sodium (Chloride) 50 mls @ 15 mls/hr IV ASDIRECTED [facility] Insulin Human Regular 100 unit (/ Sodium Chloride) 100 mls @ 0 mls/hr IV TITRATE MICHELA; Protocol Lactated Ringer's (Ringers, Lactated) Confirm Administered Dose 1,000 mls @ as directed .ROUTE .STK-MED ONE Stop: 05/15/18 07:04 Lidocaine HCl (Xylocaine-Mpf 1%) Confirm Administered Dose 2 mls @ as directed .ROUTE .STK-MED ONE Stop: 05/15/18 07:59 Multivitamins/Minerals 10 ml/Thiamine HCl 100 mg/ Chromium/Copper/Manganese/ Seleni/Zn 1 ml/ Lactated Ringer's 1,012 mls @ 100 mls/hr IV DAILY@1600 MICHELA Last Admin: 05/16/18 16:21 Dose: 100 mls/hr Cefoxitin Sodium 2 gm/ Sodium (Chloride) 50 mls @ 100 mls/hr IV Q6H MICHELA Stop: 05/16/18 09:29 Last Admin: 05/16/18 09:22 Dose: 100 mls/hr Lactated Ringer's (Ringers, Lactated) 1,000 mls @ 100 mls/hr IV ASDIRECTED [facility] Last Admin: 05/15/18 23:59 Dose: 100 mls/hr Lactated Ringer's (Ringers, Lactated) 1,000 mls @ 80 mls/hr IV ASDIRECTED [facility] Last Admin: 05/17/18 01:21 Dose: 80 mls/hr Insulin Glargine (Lantus Solostar) 25 units SUBCUT ONETIME ONE Stop: 05/15/18 21:01 Last Admin: 05/15/18 21:22 Dose: 25 unit Insulin Glargine (Lantus Solostar) 25 units SUBCUT DAILY STA Stop: 05/16/18 06:58 Last Admin: 05/16/18 07:23 Dose: 25 units Insulin Glargine (Lantus Solostar) 25 units SUBCUT BID [facility] Last Admin: 05/16/18 21:17 Dose: Not Given Insulin Human Lispro (Humalog) 7 unit SUBCUT ONETIME ONE Stop: 05/15/18 10:46 Last Admin: 05/15/18 10:36 Dose: 7 units Iohexol (Omnipaque-300) 50 ml PO ONETIME STA Stop: 05/16/18 04:01 Last Admin: 05/16/18 04:01 Dose: 50 ml Ketamine HCl (Ketalar) 25 mg IV ASDIRECTED MICHELA Lidocaine HCl (Xylocaine 2%) 100 mg IVPUSH ASDIRECTED [facility] Metformin HCl (Glucophage) 1,000 mg PO BIDMEALS [facility] Last Admin: 05/16/18 16:21 Dose: 1,000 mg Miscellaneous Information (Remove Patch) 1 ea TRDERM ONETIME ONE Stop: 05/17/18 10:01 Last Admin: 05/17/18 09:18 Dose: Not Given Neostigmine Methylsulfate (Neostigmine) Confirm Administered Dose 5 mg .ROUTE .STK-MED ONE Stop: 05/15/18 07:03 Scopolamine Patch (Check) 1 each TOP DAILY [facility] Stop: 05/17/18 11:31 Last Admin: 05/17/18 08:15 Dose: Not Given Ondansetron HCl (Zofran) Confirm Administered Dose 4 mg .ROUTE .STK-MED ONE Stop: 05/15/18 07:03 Pantoprazole Sodium (Protonix Iv) 40 mg IVPUSH Q24H [facility] Last Admin: 05/16/18 13:17 Dose: 40 mg Propofol (Diprivan 20 Ml) Confirm Administered Dose 200 mg .ROUTE .STK-MED ONE Stop: 05/15/18 07:03 Rocuronium [place] (Zemuron) Confirm Administered Dose 50 mg .ROUTE .STK-MED ONE Stop: 05/15/18 07:03 Rocuronium [place] (Zemuron) Confirm Administered Dose 50 mg .ROUTE .STK-MED ONE Stop: 05/15/18 08:46 Scopolamine (Transderm-Scop) 1.5 mg TOP Q72H [facility] Stop: 05/17/18 06:31 Last Admin: 05/15/18 07:10 Dose: 1.5 mg Succinylcholine Chloride (Quelicin) Confirm Administered Dose 200 mg .ROUTE .STK -MED ONE Stop: 05/15/18 07:03 - Exam Physical Findings Comments:: General: Sharon Nugent is a 58-year-old female, height is 5 foot 6 inches and weight is 226 pounds. Vital Signs: Temperature 36.8 C, HR 96, BP 120/71, RR 16, and oxygen saturation 93%. HEENT: Negative. Neck: Supple. Heart: Regular rate and rhythm. Lungs: Clear. Abdomen: Sutures intact. Expected tenderness with palpation. Abdominal binder in place. Extremities: Without peripheral edema. Disposition: Discharged to home. Condition: Stable and improving. Follow-Up Appointment: Noemi Lloyd PA-C on May 24 at . Medications: New Prescriptions: 1. Acetaminophen [Tylenol] 650 mg oral every 6 hours for pain. 2. Celecoxib [Celebrex] 200 mg oral daily at 8:00 AM for pain. 3. Clindamycin 300 mg oral three times day for 5 days for prophylaxis (#15 capsules given). 4. Ondansetron [Zofran] 4 mg oral every 4 hours as needed for nausea/vomiting (# 30 tabs given). She is to resume her home medications: 1. Aspirin 81 mg oral daily. 2. Escitalopram [Lexapro] 200 mg oral daily. 3. Hydrocortisone/Acetic Acid 3-5 drops in right ear twice daily. 4.Meclizine [Antivert] 12.5-25 mg oral daily. STOP taking the following medications: 1. Vitamin D2 5,000 units oral daily. 2. Multivitamin 1 tab oral daily. 3. Vitamin B complex 1 tab oral daily. 4. Metformin 1000 mg oral twice daily with meals. 5. Insulin glargine [Basaglar] 52 units subcutaneous twice daily. 6. Insulin aspart [Novolog] 8 units subcutaneous three times daily with meals as needed.
[2018-05-18] MEDS: Meclizine 25 MG Tab PO SCH (08:10)
[2018-05-18] MEDS: Celecoxib 200 MG Cap PO SCH (08:10)
[2018-05-18] MEDS: Clindamycin Phosphate 900 MG in Sodium Chloride 0.9% 100 ML IV SCH (08:22)
[2018-05-18] MEDS: Gabapentin 250 MG/5 ML Solution ML 470 ML Bottle PO SCH (08:22)
--- NOTE | 2018-05-21 11:48 | OR ---
DATE OF PROCEDURE: 05/15/2018 PREOPERATIVE DIAGNOSIS: Morbid obesity. POSTOPERATIVE DIAGNOSES: 1. Morbid obesity. 2. Marked hepatomegaly. 3. Immobile small bowel secondary to fat-laden thickened mesentery. 4. Mediastinal lipoma. OPERATIVE PROCEDURES: Diagnostic laparoscopy with: 1. Laparoscopic Stanley-en-Y gastric bypass with long-limb gastroenterostomy (00332). 2. Emanuel-Cut needle liver biopsy (08574). 3. Small bowel resection (59762). 4. Excision of mediastinal lipoma (43928). ANESTHESIA: General. SURGEON: Ford Garcia MD SHELLFISH PROCESSING MACHINE TENDER: JOE Malone. INDICATIONS FOR PROCEDURE: This is a 58-year-old presenting with longstanding morbid obesity and increasingly significant comorbidities. After preoperative evaluation and discussion, she wished to proceed with a gastric bypass procedure. Potential risks of the procedure including bleeding, infection, leaks from various GI tract closures, problems with bowel obstruction over time, as well as possibility of cardiopulmonary, septic, or hemorrhagic complications leading to were all discussed, and the patient wishes to proceed. DETAILS OF PROCEDURE: The patient was taken to the operating room and placed in a supine position. After general endotracheal anesthesia was induced, she was converted to a lithotomy position, and the abdomen was prepped and draped. Orogastric tube was then placed as well. At 15 cm inferior and 5 cm left of the xiphoid process, a transverse incision was made and peritoneal cavity entered under direct vision with an Optiview trocar. Peritoneal cavity was inflated to 15 mmHg pressure with CO2 and laparoscope reinserted. No underlying trocar insertion site injuries were seen. Following this, 5 additional trocars were placed across the upper and midabdomen. Bilateral transversus abdominis plane blocks were then placed. Initial examination revealed marked hepatomegaly with the liver being roughly 2 to 3 times normal size and grossly fatty infiltrated. Emanuel-Cut needle biopsies were taken from the left lobe of the liver. Minimal bleeding from the biopsy sites was controlled with electrocautery. The omentum was noted to be essentially all in the supracolic region. A portion of this was divided in its midline to facilitate an easier mobilization of the Stanley limb up to the pouch. This was done with Harmonic scalpel. Following this, the small bowel was identified at the ligament of Treitz and traced 200 cm distal to that point and the bowel divided at that level. The small bowel mesentery was very thick and fat-laden, making the small bowel quite immobile. Given this, roughly 10 cm of the small bowel on the biliopancreatic limb side was excised with underlying mesentery being divided with Harmonic scalpel, and the bowel once again being divided with the HEIKE stapler. This segment of small bowel was then removed. This would allow a more mobile jejunojejunostomy. Small bowel was then traced out additional 200 cm, where the [id number] enteroenterostomy was accomplished with internal firing of the Endo-HEIKE 60-mm stapler, common opening was then closed transversely, the angles anastomosed, and mesenteric defect approximated with some 0 Ethibond stitch along with fibrin sealant. The Stanley limb was then noted to come up to the area around the gastroesophageal junction with minimal tension. The liver was then retracted anteriorly. The patient was noted to have quite a bit of fat in the area of the esophagogastric junction, consistent with a mediastinal lipoma. This was excised and sent for pathologic exam. At this point, the gastrointestinal balloon catheter was inflated with 15 mL of air and pulled up snugly against the EG junction. The gastric wall over the apex of balloon was then marked with electrocautery and balloon catheter deflated and withdrawn. The lesser omental tissue adjacent to the gastric cardia was then incised, allowing dissection behind the stomach at that level. Pouch formation was initiated with a transverse firing of the HEIKE stapler at the level of the cauterized melanie in the gastric cardia, and then 2 additional firings of the HEIKE stapler were used to complete the pouch, these being directed up toward the angle of His. Upon completion of the pouch, both staple lines were noted to be intact. The anvil of a 25-mm EEA stapler was then attached to a Nash sump type tube. The latter was taken out through a small opening in the gastric pouch, which allowed the anvil to be pulled down to within the gastric pouch as well. The main body of the EEA stapler was then brought into the opening in the end of the Stanley limb, brought up through the anvil and united with it, thus creating the gastrojejunostomy. Upon removal of the stapler, double donuts of mucosa were noted within it. The small bowel was closed off with a vascular staple line. The gastrojejunostomy was then reinforced with some 3-0 Vicryl seromuscular stitch, along with fibrin sealant. A leak test was accomplished with injection of 120 mL of air in the gastric pouch while submerged within cefoxitin-containing saline solution. No leaks were identified. Two Sergey-Joseph drains were then placed adjacent to gastrojejunostomy and taken out through the subcostal trocar site. With no further problems noted, the trocars were removed and the peritoneal cavity deflated. The incision was closed with some 4-0 Vicryl skin stitch. The patient was taken to the recovery room in a satisfactory condition. There were no evident complications. Ford Garcia MD /[id number]
== END 2018-05-18 09:35 | disposition home or self-care (01) | DRG 621 ==
LOC: JP.SDSSCHI 06:21 → JP.SDS 06:21 → EDSTATUS 07:30 → JP.2SS 10:00
PROVIDERS: ADMIT Surgery; ATTEND Surgery
PROC: 0D164ZA Bypass Stomach to Jejunum, Percutaneous Endoscopic Approach (ICD-10-PCS; principal; 2018-05-15)
PROC: 0FB24ZX Excision of Left Lobe Liver, Percutaneous Endoscopic Approach, Diagnostic (ICD-10-PCS; 2018-05-15)
PROC: 0DB84ZZ Excision of Small Intestine, Percutaneous Endoscopic Approach (ICD-10-PCS; 2018-05-15)
PROC: 0WBC4ZX Excision of Mediastinum, Percutaneous Endoscopic Approach, Diagnostic (ICD-10-PCS; 2018-05-15)
DX: E66.01 Morbid (severe) obesity due to excess calories (principal); R16.0 Hepatomegaly, not elsewhere classified; D17.4 Benign lipomatous neoplasm of intrathoracic organs; K59.8 Other specified functional intestinal disorders; K76.0 Fatty (change of) liver, not elsewhere classified; Z68.37 Body mass index [BMI] 37.0-37.9, adult; I25.10 Atherosclerotic heart disease of native coronary artery without angina pectoris; J44.9 Chronic obstructive pulmonary disease, unspecified; K21.9 Gastro-esophageal reflux disease without esophagitis; F41.9 Anxiety disorder, unspecified; F32.9 Major depressive disorder, single episode, unspecified; E78.5 Hyperlipidemia, unspecified; E11.40 Type 2 diabetes mellitus with diabetic neuropathy, unspecified; Z79.4 Long term (current) use of insulin; M47.9 Spondylosis, unspecified; M47.896 Other spondylosis, lumbar region; Z95.1 Presence of aortocoronary bypass graft; Z95.5 Presence of coronary angioplasty implant and graft; Z98.1 Arthrodesis status; Z87.891 Personal history of nicotine dependence; R42 Dizziness and giddiness; H53.2 Diplopia; Z79.82 Long term (current) use of aspirin
CPT/HCPCS: 36415; 74240; 82962; 86850; 86900; 86901; 88304; 88307; 88313; A9270-GY; C9113; J0171; J0330; J0694; J1100; J1644; J1815; J1815-GY; J2001; J2405; J2704; J2710; J2795; J3010; J3411; J3420; J3490; J7030; J7042; J7050; J7120; Q9967